=== PATIENT | male | born 1960 | race Caucasian/White ===

== ENCOUNTER 2025-07-25 09:42 | Emergency (ER) | payer MEDICARE, OTHER ==
[~2025-07-25] VITALS: Ht 167.6 cm; Wt 74.8 kg
[2025-07-25] MEDS ORDERED: Lidocaine 4% 1 Patch TOP ONE (14:50)
[2025-07-25] MEDS ORDERED: Ketorolac Tromethamine 15mg Vial IM ONE (14:50)
[2025-07-25] MEDS ORDERED: LIDO700A20 TOP (16:14)
[2025-07-25] MEDS ORDERED: TIZA4 PO (16:14)
== END 2025-07-25 16:17 | disposition home or self-care (01) ==
LOC: ER 09:42
DX: M54.42 Lumbago with sciatica, left side (principal); Z88.8 Allergy status to other drugs, medicaments and biological substances; Z59.89 Other problems related to housing and economic circumstances
CPT/HCPCS: 96372; 99282-25; A9270; J1885

== ENCOUNTER 2025-09-09 07:31 | Day surgery (SDC) | payer MEDICARE, OTHER ==
[~2025-09-09] VITALS: Ht 162.6 cm; Wt 73.2 kg
[~2025-09-09 07:31] MED LIST: LIDO700A20 TOP; TIZA4 PO
[2025-09-09] MEDS ORDERED: DEXLANSOPRAZOLE60 MG (08:03)
[2025-09-09] MEDS ORDERED: LOSARTAN-HCTZ1 EAC6 (08:03)
[2025-09-09] MEDS ORDERED: ALFU10 (08:04)
== END 2025-09-09 10:41 | disposition home or self-care (01) ==
LOC: ORSCSDS 07:31
PROVIDERS: Internal Medicine Gastroenterology
PROC: 0DB78ZX Excision of Stomach, Pylorus, Via Natural or Artificial Opening Endoscopic, Diagnostic (ICD-10-PCS; principal; 2025-09-09 09:00)
PROC: 0DBK8ZX Excision of Ascending Colon, Via Natural or Artificial Opening Endoscopic, Diagnostic (ICD-10-PCS; principal; 2025-09-09 09:00)
PROC: 0DBE8ZX Excision of Large Intestine, Via Natural or Artificial Opening Endoscopic, Diagnostic (ICD-10-PCS; principal; 2025-09-09 09:00)
PROC: 0DBP8ZX Excision of Rectum, Via Natural or Artificial Opening Endoscopic, Diagnostic (ICD-10-PCS; principal; 2025-09-09 09:00)
PROC: 0DB58ZX Excision of Esophagus, Via Natural or Artificial Opening Endoscopic, Diagnostic (ICD-10-PCS; principal; 2025-09-09 09:00)
PROC: 0DB98ZX Excision of Duodenum, Via Natural or Artificial Opening Endoscopic, Diagnostic (ICD-10-PCS; principal; 2025-09-09 09:00)
DX: K22.70 Barrett's esophagus without dysplasia (principal); R19.7 Diarrhea, unspecified; Z86.0102 Personal history of hyperplastic colon polyps; D12.2 Benign neoplasm of ascending colon; D12.8 Benign neoplasm of rectum; R10.84 Generalized abdominal pain; K76.0 Fatty (change of) liver, not elsewhere classified; I10 Essential (primary) hypertension; E78.5 Hyperlipidemia, unspecified; G47.33 Obstructive sleep apnea (adult) (pediatric); N40.0 Benign prostatic hyperplasia without lower urinary tract symptoms; Z79.899 Other long term (current) drug therapy
CPT/HCPCS: 88305; 88342; J2704; J7120

== ENCOUNTER 2025-09-30 12:07 | Day surgery (SDC) | payer MEDICARE, OTHER ==
[~2025-09-30] VITALS: Ht 162.6 cm; Wt 75.7 kg
[~2025-09-30 12:07] MED LIST changes: +ALFU10; +DEXLANSOPRAZOLE60 MG; +LOSARTAN-HCTZ1 EAC6
[2025-09-30] MEDS ORDERED: GABA300 (12:36)
[2025-09-30] MEDS ORDERED: FAMO20 (12:36)
--- NOTE | 2025-09-30 13:41 | NUR ---
09/30/25 1341 Evita Treadwell SIG, NO SEDATION.
--- NOTE | 2025-09-30 14:05 | NUR ---
09/30/25 1405 Evita Treadwell NO SEDATION DURING PROCEDURE.
== END 2025-09-30 14:09 | disposition home or self-care (01) ==
LOC: ORSCSDS 12:07
PROVIDERS: Specialist
PROC: 0DJD8ZZ Inspection of Lower Intestinal Tract, Via Natural or Artificial Opening Endoscopic (ICD-10-PCS; principal; 2025-09-30 13:45)
DX: R93.3 Abnormal findings on diagnostic imaging of other parts of digestive tract (principal); Z86.0101 Personal history of adenomatous and serrated colon polyps; G47.33 Obstructive sleep apnea (adult) (pediatric); I10 Essential (primary) hypertension; E78.5 Hyperlipidemia, unspecified; Z79.899 Other long term (current) drug therapy
CPT/HCPCS: J2704; J7120